=== PATIENT | male | born 1965 | race African-American/Black ===

== ENCOUNTER 2022-12-16 15:59 | Inpatient (IN) | payer MEDICAID ==
[~2022-12-16] VITALS: Ht 182.9 cm; Wt 107.5 kg
[2022-12-16 17:42] LABS: BASOPHILS % 0.9 % (0.0-2.0); EOSINOPHILS % 2.4 % (0.0-5.0); HEMOGLOBIN. 15.1 g/dL (14.0-18.0); LYMPHOCYTES % 35.4 % (20.0-50.0); MEAN CORPUSCULAR HEMOGLOBIN 28.2 pg (28.0-32.0); MEAN CORPUSCULAR VOLUME 84.1 fL (80.0-94.0); MEAN PLATELET VOLUME 8.3 fl (7.4-10.4); MONOCYTES % 10.6 % (2.0-8.0); NEUTROPHILS % 50.7 % (40.0-76.0); PLATELET 281 x1000/uL (130-400); RED BLOOD CELL COUNT 5.35 mill/uL (4.7-6.1); RED CELL DISTRIBUTION WIDTH 14.1 % (11.6-14.6)
[2022-12-16 17:49] LABS: CHLORIDE 107 mEq/L (98-107)
[2022-12-16 17:51] LABS: PROTHROMBIN TIME 10.9 sec (9.6-11.0)
[2022-12-16 17:56] LABS: CLARITY URINE CLEAR (CLEAR); COLOR URINE YELLOW (YELLOW); KETONES URINE NEGATIVE (NEGATIVE); LEUKOCYTE ESTERASE URINE NEGATIVE (NEGATIVE); NITRITE URINE NEGATIVE (NEGATIVE); OCCULT BLOOD URINE NEGATIVE (NEGATIVE); PROTEIN URINE NEGATIVE (NEGATIVE); SPECIFIC GRAVITY URINE 1.024 (1.005-1.030); UROBILINOGEN URINE 0.2 E.U./dL (0.2-1.0)
[2022-12-16 19:09] LABS: ETHANOL BLOOD < 10 mg/dL (-10); T4 FREE 1.23 ng/dL (0.76-1.46)
[2022-12-16] MEDS ORDERED: NICARDIPINE 50 MG in SODIUM CHLORIDE 0.9% 230 ML IV PRN ×2 (20:00→23:00)
[2022-12-16] MEDS: ACETAMINOPHEN 325MG TABLET PO NR ×2 (20:04→20:05)
[2022-12-16] MEDS: NICARDIPINE 40MG/200ML PREMIX 200 ML IV PRN (20:32)
[2022-12-16 21:16] LABS: *AMPHETAMINES SCREEN URINE NEGATIVE (NEGATIVE); *BARBITURATES SCREEN URINE NEGATIVE (NEGATIVE); *BENZODIAZEPINES SCREEN URINE NEGATIVE (NEGATIVE); *COCAINE SCREEN URINE NEGATIVE (NEGATIVE); CANNABINOID URINE SCREEN NEGATIVE (NEGATIVE); METHADONE URINE SCREEN NEGATIVE (NEGATIVE); OPIATES URINE SCREEN NEGATIVE (NEGATIVE); PHENCYCLIDINE URINE SCREEN NEGATIVE (NEGATIVE)
[2022-12-16] MEDS ORDERED: CLONIDINE 0.1MG TABLET PO PRN (23:00)
[2022-12-16] MEDS ORDERED: AMLODIPINE 10MG TABLET PO SCH (23:00)
[2022-12-16] MEDS ORDERED: ACETAMINOPHEN 325MG TABLET PO PRN (23:00)
[2022-12-16] MEDS ORDERED: ONDANSETRON HCL 4MG/2ML INJ IV PRN (23:00)
[2022-12-16] MEDS ORDERED: MAGNESIUM/ALUMINUM HYDROXIDE/SIMETHICONE 30ML UDC PO PRN (23:00)
[2022-12-16] MEDS ORDERED: HYDROCODONE/ACETAMINOPHEN 5/325MG TABLET PO PRN (23:00)
[2022-12-16] MEDS ORDERED: AMLODIPINE 5MG TABLET PO NR (23:45)
[2022-12-17] MEDS: NICARDIPINE 40MG/200ML PREMIX 200 ML IV PRN (00:30)
[2022-12-17 05:50] VITALS: BP 158/105; PULSE 84; RESP 18; TEMP 97.4
[2022-12-17] MEDS ORDERED: ASPI1TAB8 PO (06:57)
[2022-12-17] MEDS ORDERED: AMLO5TAB88 PO (06:57)
[2022-12-17 08:00] VITALS: BP 140/89; PULSE 88; RESP 20; TEMP 98
[2022-12-17] MEDS ORDERED: ENOXAPARIN 30MG/0.3ML SYR SUBCUT SCH (09:00)
[2022-12-17] MEDS ORDERED: AMLODIPINE 10MG TABLET PO SCH (09:00)
[2022-12-17 09:02] LABS: BASOPHILS % 1.1 % (0.0-2.0); EOSINOPHILS % 2.2 % (0.0-5.0); HEMATOCRIT. 44.9 % (42.0-52.0); HEMOGLOBIN. 15.1 g/dL (14.0-18.0); LYMPHOCYTES % 23.8 % (20.0-50.0); MEAN CORPUSCULAR VOLUME 83.7 fL (80.0-94.0); MEAN PLATELET VOLUME 8.5 fl (7.4-10.4); MONOCYTES % 9.7 % (2.0-8.0); NEUTROPHILS % 63.2 % (40.0-76.0); PLATELET 265 x1000/uL (130-400); RED BLOOD CELL COUNT 5.37 mill/uL (4.7-6.1); RED CELL DISTRIBUTION WIDTH 13.9 % (11.6-14.6)
[2022-12-17 09:27] LABS: CHLORIDE 104 mEq/L (98-107)
[2022-12-17 09:32] LABS: HDL CHOLESTEROL 52 mg/dL (40-59); LDL CHOLESTEROL 102 mg/dL (5-100); PHOSPHORUS 2.5 mg/dL (2.5-4.9); T4 FREE 1.42 ng/dL (0.76-1.46)
[2022-12-17 12:00] VITALS: BP 128/85; PULSE 78; RESP 21; TEMP 97.5
[2022-12-17] MEDS ORDERED: AMLO10TA80 PO (12:31)
[2022-12-17 12:35] VITALS: BP 128/85; PULSE 78; TEMP 97.5; O2SAT 98
== END 2022-12-17 15:35 | disposition home or self-care (01) | DRG 199 ==
LOC: ER 17:47 → 8WST 21:56 → EDBEDREQSVC 12-17 04:50 → ENRESERV 12-17 04:54
PROVIDERS: ADMIT Family Medicine Adult Medicine; ATTEND Family Medicine Adult Medicine
DX: I16.0 Hypertensive urgency (principal); I50.32 Chronic diastolic (congestive) heart failure; E05.00 Thyrotoxicosis with diffuse goiter without thyrotoxic crisis or storm; I11.0 Hypertensive heart disease with heart failure
CPT/HCPCS: 36415; 80048; 80053; 80061; 80076; 80305; 80320; 81003; 83735; 84100; 84439; 84443; 84484; 85025; 93005; 93306; 93970; 99291; J1650; G0480